=== PATIENT | male | born 1990 | race Caucasian/White ===

== ENCOUNTER 2019-04-15 06:09 | Emergency (ER) | payer SELFPAY ==
[2019-04-15 06:10] VITALS: BP 131/76; PULSE 86; RESP 20; TEMP 37.1; O2SAT 98
--- NOTE | 2019-04-15 07:02 | ED.GENADULT ---
HPI - General Adult General Chief complaint: Skin/Abscess/Foreign Body Stated complaint: RASH Time Seen by Provider: 04/15/19 06:45 Source: patient Mode of arrival: ambulatory Limitations: no limitations History of Present Illness HPI narrative: Kyle is a 29-year-old male patient. He is presents to the emergency room ambulatory. His main complaint is generalized pruritic rash on his trunk and limbs. There is no rash on the face. This has been going on since yesterday. Kyle says that he has a chicken coop and apparently some pegs entered the coop and he was wrestling with them to get them out of the coop. the rashes are generalized pruritus as noted above. No history of fever or cough. No nausea or vomiting. No abdominal or chest pain. nothing makes his symptoms better or worse. He has not taken any Benadryl. He has not used any local OTC ointment or cream. Onset (ago): day(s) ( Since yesterday) Location: lower extremity ( see HPI narrative) Severity: moderate Pain Consistency: other ( no pain) Relieving factors: none Exacerbating factors: other ( See HPI narrative) Associated symptoms: rash Treatments prior to arrival: none Related Data Allergies Allergy/AdvReac Type Severity Reaction Status Date / Time No Known Allergies Allergy Verified 04/15/19 07:27 Review of Systems Review of Systems: All systems reviewed & are unremarkable except as noted in HPI and below Constitutional: Constitutional: Reports as per HPI, Reports no additional constitutional complaints, Denies chills and Denies fever(s) Eyes: Eyes: Reports as per HPI, Reports no additional eye complaints and Denies change in vision ENT: Reports system reviewed and no additional complaints, except as documented, Denies dysphagia, Denies vertigo, Denies dizziness, Denies nasal congestion and Denies sore throat Cardiovascular: Cardiovascular: Reports as per HPI, Reports no additional cardiovascular complaints, Denies chest pain and Denies radiating jaw, neck or arm pain Respiratory: Respiratory: Reports as per HPI, Reports no additional respiratory complaints, Denies cough and Denies dyspnea Gastrointestinal: Gastrointestinal: Reports as per HPI, Reports no additional gastrointestinal complaints, Denies abdominal pain, Denies nausea and Denies vomiting Genitourinary: Genitourinary: Reports no additional male genitourinary complaints, Denies hematuria and Denies dysuria Musculoskeletal: Musculoskeletal: Reports no additional musculoskeletal complaints and Denies back pain Integumentary/Breasts: Skin/Breast: Reports system reviewed and no additional complaints, except as docu, Reports pruritus and Reports rash Neurologic: Reports system reviewed and no additional complaints, except as documented, Denies dizziness, Denies syncope, Denies focal weakness, Denies numbness and Denies weakness Endocrine: Endocrine: Reports no additional endocrine complaints and Denies polydipsia Hematologic/Lymphatic: Hematologic/Lymphatic: Reports no additional hematologic/lymphatic complaints, Denies easy bleeding and Denies easy bruising Allergic/Immunologic: Allergic/Immunologic: Reports no additional allergic/immunologic complaints, Denies lip swelling, Denies throat swelling, Denies tongue swelling and Denies wheezing PMFSH Surgical History Surgical History (Updated 04/15/19 @ 07:21 by Marvel Coombs MD) No pertinent past surgical history Social History Social History (Updated 04/15/19 @ 07:22 by Marvel Coombs MD) Smoking packs per day: 2 Smoking cigarettes per day: 40.0 Years smoked: 15 Smoking pack-years: 30.00 Smoking status: Current every day smoker Tobacco type: cigarettes Additional smoking assessment comments: does not drink alcohol Substance use type: marijuana Exam Const: General: no acute distress ( mild distress from pruritus) and alert Orientation/consciousness: patient oriented x3 HENMT: Ears: external ears normal,
--- NOTE | 2019-04-15 07:45 | PC.NURSE ---
0700 pt declined injection offered per erp. pt only wants tablets. rx will be sent to [facility] as requested per pt.
== END 2019-04-15 07:25 | disposition left against medical advice (07) ==
PROVIDERS: Emergency Provider Surgery
DX: R21 Rash and other nonspecific skin eruption (principal)
CPT/HCPCS: 99283